=== PATIENT | male | born 1965 | race Caucasian/White ===

== ENCOUNTER 2020-02-05 08:00 | Inpatient (IN) | payer BC ==
[~2020-02-05] VITALS: Ht 182 cm; Wt 91.2 kg
--- NOTE | 2020-03-02 09:48 | HISTORY AND PHYSICAL ---
DATE OF SERVICE: ADMISSION HISTORY AND PHYSICAL This will be for inpatient admission on 03/11/2020, for right total knee arthroplasty. The patient will require a regular inpatient admission for right total knee arthroplasty due to pain management, need for physical therapy and gait abnormalities. HISTORY OF PRESENT ILLNESS: The patient is a 55-year-old gentleman with progressively worsening right medial knee pain. He has tried bracing. He has also undergone treatment with injections. He reports that this has been progressive in nature. Radiographs reveal complete loss of medial patellofemoral joint spaces with osteophyte formation noted. Due to progressive activity limitations and failure to improve with conservative measures, the patient elected to proceed with surgical intervention. REVIEW OF SYSTEMS: No chest pain, no shortness of breath, no dysuria. PAST MEDICAL HISTORY: Diabetes type 2, hypertension. PAST SURGICAL HISTORY: L5/S1 fusion, tonsillectomy and left shoulder rotator cuff repair. FAMILY HISTORY: Significant for ischemic heart disease. PRIMARY CARE PROVIDER: Dr. Medeiros in [place], [place]. MEDICATIONS: Metformin. ALLERGIES: No known drug allergies. SOCIAL HISTORY: The patient drinks alcohol socially, he is a former smoker. PHYSICAL EXAMINATION: GENERAL: The patient is well-developed, well-nourished, in no acute distress. HEENT: Normocephalic, atraumatic. Pupils are equal, round, reactive lateral. Oropharynx is clear. NECK: Supple, no lymphadenopathy. LUNGS: Clear to auscultation bilaterally. HEART: Regular rate and rhythm. ABDOMEN: Soft, nontender, nondistended. EXTREMITIES: The right knee demonstrates varus alignment. He has tenderness along his medial joint line, has pain medially with Yovani's. Slight effusions noted. Range of motion is 0/2/125. No varus valgus laxity. Negative anterior and posterior drawer. The patient ambulates with an antalgic gait. Range of motion 0/2/125. IMPRESSION: Severe right knee osteoarthritis, unresponsive to conservative measures. PLAN: Right total knee arthroplasty. Risks, benefits, options, ramifications and recovery have been discussed at length with the patient. He understands and wishes to proceed. Job ID: [id number] DocumentID: [id number] Dictated Date: 03/02/2020 08:34:23 Valet Parking Attendant Date: 03/02/2020 09:47:05 Dictated By: MARIA DE JESUS LATHAM MD
[2020-03-03] MEDS ORDERED: SULF1TAB35 PO (11:58)
[2020-03-03] MEDS ORDERED: METF-397 PO ×2 (11:58)
[2020-03-03] MEDS ORDERED: AMOX250T PO (11:58)
--- NOTE | 2020-03-31 10:32 | HISTORY AND PHYSICAL ---
DATE OF SERVICE: This will be for inpatient admission on 04/08/2020. This will be for inpatient admission for right total knee arthroplasty. The patient will require regular inpatient admission due to pain management, need for physical therapy and gait abnormalities. HISTORY OF PRESENT ILLNESS: The patient is a 55-year-old gentleman with progressively worsening right medial knee pain. He has tried bracing. He has undergone treatment with injections. He reports this has been progressive in nature. Radiographs reveal complete loss of medial and patellofemoral joint spaces with osteophyte formation noted throughout. Due to progressive activity limitations and failure to improve with conservative measures, the patient elected to proceed with surgical intervention. REVIEW OF SYSTEMS: No chest pain, no shortness of breath, no dysuria. PAST MEDICAL HISTORY: Type 2 diabetes, hypertension. PAST SURGICAL HISTORY: L5-S1 fusion, tonsillectomy and left rotator cuff repair. FAMILY HISTORY: Significant for ischemic heart disease. PRIMARY CARE PROVIDER: Dr. Medeiros in [place], [place]. MEDICATIONS: Metformin. ALLERGIES: No known drug allergies. SOCIAL HISTORY: The patient drinks alcohol socially. He is a former smoker. PHYSICAL EXAMINATION: GENERAL: The patient is well-developed, well-nourished, in no acute distress. HEENT: Normocephalic, atraumatic. Pupils are equal, round and reactive to light. Oropharynx is clear. NECK: Supple, with no lymphadenopathy. LUNGS: Clear to auscultation bilaterally. HEART: Regular rate and rhythm. ABDOMEN: Soft, nontender, nondistended. EXTREMITIES: The right knee demonstrates range of motion of 0/2/125. He has a slight effusion. He is tender along his medial joint line. He has pain medially with Yovnai. His knee demonstrates varus alignment. There is no varus valgus laxity. Negative anterior and posterior drawer. He ambulates with an antalgic gait. IMPRESSION: Right knee osteoarthritis, unresponsive to conservative measures. PLAN: Right total knee arthroplasty. The risks, benefits, options, ramifications of recovery were discussed at length with the patient. He understands and wishes to proceed. Job ID: [id number] DocumentID: [id number] Dictated Date: 03/31/2020 10:18:55 Dairy Products Maker Date: 03/31/2020 10:31:58 Dictated By: MARIA DE JESUS LATHAM MD
[2020-04-08] VITALS (12 sets, daily range): BP systolic 150–210; BP diastolic 80–111
[2020-04-08] MEDS ORDERED: CEFUROXIME INJECTION 1,500 MG in WATER (STERILE) FOR INJECTION 15 ML IV ONE (06:15)
[2020-04-08] MEDS: LACTATED RINGERS 1,000 ML IV PRN ×2 (06:38→08:04)
[2020-04-08] MEDS ORDERED: ONDANSETRON 4 MG/2 ML (SDV) Z0FRAN ONE (06:40)
[2020-04-08] MEDS ORDERED: BUPIVACAINE 0.25% 30 ML (SENSORCAINE) VIAL ONE (06:40)
[2020-04-08] MEDS ORDERED: LIDOCAINE PF 2% 5 ML (XYLOCAINE) VIAL ONE (06:40)
[2020-04-08] MEDS ORDERED: proPOfol 200 MG/20 ML (DIPRIVAN) VIAL IV ONE ×2 (06:40→07:56)
[2020-04-08] MEDS ORDERED: fentaNYL INJECTION 100 MCG/2 ML AMP ONE ×3 (06:40→10:05)
[2020-04-08] MEDS ORDERED: MIDAZOLAM 2 MG/2 ML (VERSED) VIAL ONE (06:40)
[2020-04-08] MEDS ORDERED: SEVOFLURANE (ULTANE) 15 ML INHAL SOLN ONE ×5 (06:40→08:59)
[2020-04-08] MEDS ORDERED: ACETAMINOPHEN 325 MG TABLET PO PRN (07:30)
--- NOTE | 2020-04-08 07:32 | Progress Note-Pre Operative ---
Pre-Operative Progress Note H&P Reviewed The H&P was reviewed, patient examined and no changes noted. Date Seen by Provider: Apr 08, 2020 Time Seen by Provider: 07:22 Date H&P Reviewed: Apr 08, 2020 Time H&P Reviewed: 07:11 Pre-Operative Diagnosis: right knee primary osteoarthritis MARIA DE JESUS LATHAM MD Apr 08, 2020 07:32
--- NOTE | 2020-04-08 07:34 | Progress Note-Post Operative ---
Post-Operative Progess Note Surgeon (s)/Family Preservation Caseworker (s) Surgeon MARIA DE JESUS LATHAM MD Family Preservation Caseworker: Steve Oh Pre-Operative Diagnosis right knee primary osteoarthritis Post-Operative Diagnosis right knee primary osteoarthritis Procedure & Operative Findings Date of Procedure 04/08/20 Procedure Performed/Findings right total knee arthroplasty Anesthesia Type GETA Estimated Blood Loss Estimated blood loss (mL): minimal Specimens/Packing Specimens Removed none Packing: none MARIA DE JESUS LATHAM MD Apr 08, 2020 07:34
--- NOTE | 2020-04-08 07:37 | D/C HH Face to Face Order ---
D/C Face to Face Orders Reconcile Patient Problems Problems Reviewed?: Yes Instructions for Patient Via Joleen Formabilio, Patient Instructions/FollowUp: three weeks Physician to follow Patient: three weeks Discharge Diet for Home: Regular Diet Patient Data-Allergies,Ht & Wt Patient Allergies: Coded Allergies: No Known Drug Allergies (Unverified , 04/08/20) Home Health Need/Face to Face Date of Face to Face: Apr 08, 2020 Clinical Findings: Instability, Muscle weakness, Pain with ambulation, Unsteady gait I have seen Pt [id number]: Yes Discharged To: Home Diagnosis/Conditions: right total knee arthroplasty Patient is Homebound due to: Alyssa fall risk due to instabilty, Muscle weakness, Pain w/ambulation Homebound Status Due to the above stated illness, injury or surgical procedure (medical condition or diagnosis) and associated clinical findings, the patient is homebound because of his/her inability to leave home except with aid of a supportive device and/or person AND leaving the home requires a considerable and taxing effort or is medically contraindicated. Pt req the following assistanc: [facility] Nursing Orders Home Health Services Order: Physical Therapy-Evaluate & Treat DC right knee hunter and apply steri strips 04/22/20 Home Health Infusion Therapy Line Start Date: Apr 08, 2020 Therapy Orders Therapy Orders: Physical Therapy, PT to assess for OT Therapy Specific Orders: Eval assistive deivces, Teach enviro modifications/safety, Gait training, Increase strength/endurance, Provider maintenance therapy, Restore ROM Certify Stmt I certify that this patient is under my care and that I, a nurse practitioner or a physician; a data analysis assistant working with me, had a face to face encounter that - meets the physician face to face encounter requirements with this patient as dated. MARIA DE JESUS LATHAM MD Apr 08, 2020 07:37
[2020-04-08] MEDS ORDERED: INTRA-ARTICULAR IU ONE ×5 (07:45)
[2020-04-08] MEDS ORDERED: HYDROmorphone 2 MG/ML VIAL (DILAUDID) ONE (08:11)
[2020-04-08] MEDS ORDERED: GLYCOPYRROLATE 0.2 MG/ML (ROBINUL) 2 ML VIAL ONE (08:32)
[2020-04-08] MEDS ORDERED: ESMOLOL 100 MG/10 ML (BREVIBLOC) VIAL ONE (08:32)
[2020-04-08] MEDS ORDERED: MEPERIDINE (DEMEROL) INJ 50 MG/ML ONE (09:18)
[2020-04-08] MEDS ORDERED: LABETALOL HCL 20 MG/4 ML VIAL ONE (09:31)
--- NOTE | 2020-04-08 09:44 | Diagnostic Imaging Report ---
INDICATION: Postop right knee arthroplasty. FINDINGS: 2 views. Total arthroplasty of the right knee. Components are all in good alignment. No evidence of bony fractures. Skin hunter present. IMPRESSION: Satisfactory appearing postop total arthroplasty right knee Dictated by: Dictated on workstation # [id number]
[2020-04-08] MEDS ORDERED: HYDROmorphone 2 MG/ML VIAL (DILAUDID) IV ONE (09:45)
[2020-04-08] MEDS ORDERED: MEPERIDINE (DEMEROL) INJ 50 MG/ML IVP ONE (09:45)
[2020-04-08] MEDS ORDERED: ONDANSETRON 4 MG/2 ML (SDV) Z0FRAN IVP PRN (09:45)
[2020-04-08] MEDS ORDERED: LABETALOL HCL 100 MG/20 ML VIAL IV ONE (09:45)
[2020-04-08] MEDS ORDERED: fentaNYL INJECTION 100 MCG/2 ML AMP IVP ONE (10:15)
--- NOTE | 2020-04-08 10:24 | NUR ---
RECEIVED FROM RECOVERY POST RIGHT KNEE REPLACEMENT, ALERT AND ORIENTED, CALL LIGHT WITHIN REACH, DRESSING DRY AND INTACT, POLAR ICE PACK ON, SDC'S APPLIED, O2 ON PER NC AT 3 LITERS, IV SITE LEFT FOREARM WITHOUT REDNESS OR SWELLING.
--- NOTE | 2020-04-08 10:25 | Progress Note ---
Standard Progress Note Progress Notes/Assess & Plan Date Seen by a Provider: Apr 08, 2020 Time Seen by a Provider: 09:30 Progress/Assessment & Plan post op check no complaints radiographs--HW well positioned without fracture RLE--2 plus DP pulse with brisk cap refill. intact sensation to light touch. Intact DF and PF of toes and ankle s/p RTKA mobilize as able MARIA DE JESUS LATHAM MD Apr 08, 2020 10:25
--- NOTE | 2020-04-08 10:42 | OPERATIVE REPORT ---
DATE OF SERVICE: 04/08/2020 PREOPERATIVE DIAGNOSIS: Right knee primary osteoarthritis. POSTOPERATIVE DIAGNOSIS: Right knee primary osteoarthritis. PROCEDURE: Right total knee arthroplasty. SURGEON: Akbar Latham MD [employer]STATE PARALEGAL: Steve Oh, who assisted throughout the procedure and closed the incision. ANESTHESIA: General endotracheal plus femoral nerve block by Genie López CRNA. TOURNIQUET TIME: 72 minutes at 300 mmHg. ESTIMATED BLOOD LOSS: Minimal. DRAINS: None. COMPLICATIONS: None. POSTOPERATIVE PLAN: Routine total knee arthroplasty protocol. The patient was transferred to the recovery room awake and in stable condition. MATERIALS: Microport cemented, size 6 femur, cemented size 6 tibia with 10 mm insert and cemented size 35 patellar button. The patient was transferred to the recovery room awake and in stable condition. STATEMENT OF MEDICAL NECESSITY: The patient is a 55-year-old gentleman with longstanding progressive right knee pain. He had undergone treatment with injections, anti-inflammatories and rest without relief. Radiographs revealed severe medial patellofemoral arthrosis. Due to functional impairment and failure to improve with conservative measures, the patient elected to proceed with surgical intervention. DESCRIPTION OF PROCEDURE: After risks and benefits of procedure were discussed and questions were answered, informed consent was signed and placed on chart, the operative site was confirmed in the preoperative holding area initialed by the surgeon. The patient was then transferred to the operating room and after adequate levels of general endotracheal anesthetic were obtained, a timeout was called, confirming the operative site. The right lower extremity was prepped and draped in the usual sterile fashion with the knee flexed and elevated, tourniquet was inflated to 300 mmHg. A standard anterior approach was utilized. Hemostasis was obtained with cautery. Medial parapatellar arthrotomy was performed leaving 1 cm cuff on the patella for later reattachment. A portion of the fat pad was resected. A subperiosteal release was performed in the proximal medial tibia being careful to stay on the bony surface. The ACL was resected. There was a flexion contracture. Therefore, the PCL was released as well. The intramedullary guide was passed into the femur. The distal cutting block was placed. Distal cut was made. Femur sized to a size 6. The 6 cutting block was placed parallel to the epicondylar axis and cuts were made from posterior to anterior. Subperiosteal release was then carefully performed on the posterior distal femur, being careful to stay on the bony surface. The intramedullary guide was passed into the tibia. The cutting block was placed. The drop nuha transected the intermalleolar axis and the cut was made. The 6-baseplate was placed and the drop nuha transected the intermalleolar axis. This was then prepared with the drill and keel punch. The femoral trial was placed and trochlear cut was made, 10 mm insert was placed. The patella was prepared by using the freehand technique and resecting 10 mm off the undersurface. Peg guide was placed and peg holes were drilled. A 35 trial was placed. Knee was taken through range of motion. Full extension was easily obtained, 120 degrees of flexion with gravity was easily obtained. There was no anterior/posterior or medial/lateral laxity in flexion or extension. The trials were removed. The joint was irrigated with pulse lavage. The periarticular block was placed in the posterior capsule, medial and lateral retinaculum extensor mechanism, subcutaneous tissues. The bone ends were irrigated and dried and the tibial baseplate was cemented into position. Excessive cement was removed, the superior surface was irrigated and dried and the polyethylene insert was placed. Distal femur was irrigated and dried and the femoral prosthesis was cemented into position. Excessive cement was removed. The knee was brought out into full extension, held in that position until the cement had cured. The undersurface of patella was irrigated and dried and the patellar button was cemented into position. Once the cement had cured, the knee was taken through range of motion. Full extension was easily obtained, 120 degrees of flexion with gravity was easily obtained. There was no anterior/posterior or medial/lateral laxity in flexion or extension. The joint was further irrigated with pulse lavage. Arthrotomy was closed with #2 Tevdek in [id number] interrupted fashion. The knee was flexed. Patella tracked well with no instability noted and no undue tension at the repair site. Subcutaneous tissues were irrigated using a total of 6 liters throughout the procedure. A 2-0 Vicryl was used for subcutaneous tissue and hunter used on the skin. A soft dressing was applied. The tourniquet was deflated. The patient was transferred to the recovery room awake and in stable condition. Job ID: [id number] DocumentID: [id number] Dictated Date: 04/08/2020 09:24:06 Intake Nurse Date: 04/08/2020 10:42:15 Dictated By: AKBAR LATHAM MD
[2020-04-08] MEDS: NS IV 1000 ML 1,000 ML IV SCH ×2 (11:02→23:21)
[2020-04-08] MEDS: morphine PCA 100 MG/100 ML BAG IV PRN (11:23)
--- NOTE | 2020-04-08 11:23 | NUR ---
MORPHINE SUPERVISOR COOK ROOM STARTED, 1MG PER ML, 3MG BOLUS GIVEN, INSTRUCTED PATIENT ON HOW TO USE SUPERVISOR COOK ROOM, VERBALIZED UNDERSTANDING
[2020-04-08] MEDS: inSUlin ASPART (NovoLOG) 1 UNIT/0.01 ML (CHARGE PER UNIT) SC SCH ×3 (11:45→20:32)
--- NOTE | 2020-04-08 13:10 | Consultation - Hospitalist ---
HPI History of Present Illness: HPI/Chief Complaint Valentin Durand is a 55-year-old male with past medical history of hypertension, diabetes, osteoarthritis, who presented for right total knee arthroplasty due to primary osteoarthritis. He underwent his surgery this morning and is doing well postoperatively. He has not eaten or drank anything yet. He has not gotten up and worked with physical therapy yet. He denies any fevers or chills. He denies any chest pain or shortness of breath. He denies any abdominal pain. He denies any nausea or vomiting. He has no other complaints or concerns. He has a history of hypertension but does not take any medications regularly for this. He also has diabetes and he takes metformin at home. Source: patient Exam Limitations: no limitations Date Seen 04/08/20 Attending Physician Akbar Abdalla MD PCP No,Local Physician Referring Physician Date of Admission Apr 08, 2020 at 06:04 Home Medications & Allergies Home Medications Reviewed patient Home Medication Reconciliation performed by pharmacy medication reconciliations formula technician and/or nursing. Patients Allergies have been reviewed. Allergies Allergies Coded Allergies No Known Drug Allergies (Unverified04/08/20) Past Kqotoxn-Htygli-Xbdsjy Hx Past Med/Social Hx: Reviewed Nursing Past Med/Soc Hx Patient Social History Smoking Status: Former Smoker Former Smoker, Quit: Mar 03, 2013 Recent Foreign Travel: No Contact w/other who traveled: No Recent Hopitalizations: Yes Seasonal Allergies Seasonal Allergies: Yes (MILD) Past Medical History Currently Using CPAP: No Currently Using BIPAP: No Sexually Transmitted Disease: No HIV/AIDS: No Musculoskeletal: Arthritis Endocrine: Diabetes, Non-Insulin dep Loss of Vision: Denies Hearing Impairment: Denies Cancer: Skin Did You Recieve Any Treatments: Yes What Type of Treatment Did You: Surgical Intervention Psychosocial: Anxiety History of Blood Disorders: No Adverse Reaction to Blood [place]: No (N/A) Review of Systems Constitutional: no symptoms reported EENTM: no symptoms reported Respiratory: no symptoms reported Cardiovascular: no symptoms reported Gastrointestinal: no symptoms reported Genitourinary: no symptoms reported Musculoskeletal: no symptoms reported Skin: no symptoms reported Psychiatric/Neurological: No Symptoms Reported Physical Exam Physical Exam Vital Signs Vital Signs - First Documented 04/08/20 07:01 Temp 36.3 Pulse 72 Resp 18 B/P (MAP) 168/90 (116) Pulse Ox 96 O2 Delivery Room Air Capillary Refill : Less Than 3 Seconds Height, Weight, BMI Height: '" Weight: lbs. oz. kg; 27.53 BMI Method: General Appearance: No Apparent Distress, WD/WN HEENT: PERRL/EOMI, Pharynx Normal Neck: Normal Inspection, Supple Respiratory: Lungs Clear, Normal Breath Sounds, No Respiratory Distress Cardiovascular: Regular Rate, Rhythm, No Edema, No Murmur Gastrointestinal: Normal Bowel Sounds, Non Tender, Soft Extremity: Normal Inspection, Non Tender, No Pedal Edema Neurologic/Psychiatric: Alert, Oriented x3, No Motor/Sensory Deficits, Normal Mood/Affect Skin: Normal Color, Warm/Dry Results Results/Procedures Labs Laboratory Tests 04/09/20 05:25 Patient resulted labs reviewed. Imaging: Reviewed Imaging Report Assessment/Plan Assessment and Plan Assess & Plan/Chief Complaint Total knee arthroplasty Osteoarthritis of right knee Ortho primary Pain regimen Bowel regimen Incentive spirometry PT/OT T2DM Sliding scale insulin HTN Hydralazine as needed DVT prophylaxis: Lovenox Diagnosis/Problems Diagnosis/Problems (1) S/P total knee arthroplasty Status: Acute Qualifiers: Laterality: right Qualified Codes: Z96.651 - Presence of right artificial knee joint (2) Osteoarthritis of right knee Status: Chronic Qualifiers: Osteoarthritis type: primary Qualified Codes: M17.11 - Unilateral primary osteoarthritis, right knee (3) T2DM (type 2 diabetes mellitus) Status: Chronic Qualifiers: Diabetes mellitus predatory animal exterminator insulin use: without assisted use (4) HTN (hypertension) Status: Chronic Qualifiers: Hypertension type: essential hypertension Qualified Codes: I10 - Essential (primary) hypertension JAH PARR MD Apr 08, 2020 13:10
--- NOTE | 2020-04-08 13:48 | Physical Therapy Evaluation ---
PT Evaluation-General Medical Diagnosis Admission Date Apr 08, 2020 at 06:04 Medical Diagnosis: right TKA Onset Date: Apr 08, 2020 Therapy Diagnosis Therapy Diagnosis: impaired mobility, strength, endurance, ROM Weight Bear Status Right Lower Extremity: Right Weight Bearing/Tolerated Referral Physician: Adriano Reason for Referral: Evaluation/Treatment Medical History Additional Medical History PAST MEDICAL HISTORY: Type 2 diabetes, hypertension. PAST SURGICAL HISTORY: L5-S1 fusion, tonsillectomy and left rotator cuff repair. Reviewed History: Yes Social History Home: Single Level Current Living Status: Spouse Entry Into Home: Stairs With Railing PT Steps Into Home: 3 Prior Prior Level of Function SCALE: Activities may be completed with or without assistive devices. 8-Hbttidrojv-silquck completes the activity by him/herself with no assistance from a helper. 5-Set-up or Clean-up Assistance-helper sets up or cleans up; patient completes activity. [place] assists only prior to or following the activity. 4-Supervision or Touching Assistance-helper provides verbal cues and/or touching/steadying and/or contact guard assistance as patient completes activity. Assistance may be provided throughout the activity or intermittently. 3-Partial/Moderate Assistance-helper does LESS THAN HALF the effort. [place] lifts, holds or supports trunk or limbs, but provides less than half the effort. 2-Substantial/Maximal Assistance-helper does MORE THAN HALF the effort. [place] lifts or holds trunk or limbs and provides more than half the effort. 4-Xcvadptia-pwuzni does ALL the effort. Patient does none of the effort to complete the activity. Or, the assistance of 2 or more helpers is required for the patient to complete the activity. If activity was not attempted, code reason: 7-Patient Refused. 9-Not Applicable-not attempted and the patient did not perform the activity before the current illness, exacerbation or injury. 10-Not Attempted due to Environmental Limitations-(lack of equipment, weather restraints, etc.). 88-Not Attempted due to Medical Conditions or Safety Concerns. Bed Mobility: 6 Transfers (B,C,W/C): 6 Gait: 6 Stairs: 6 Indoor Mobility (Ambulation): Independent Stairs: Independent PT Evaluation-Current Subjective Patient in bed pre tx, agrees to PT, has unrated pain in right knee. Pt/Family Goals to be independent at home Objective Patient Orientation: Person, Place, Situation Attachments: IV ROM/Strength ROM Lower Extremities right knee extension +3 degrees, flexion 80 degrees Sensory Hearing: Functional Sensation Right Lower Extremit: Intact Sensation Left Lower Extremity: Intact Transfers Roll Left to Right (QC): 6 Sit to Lying (QC): 6 Lying to Sitting/Side of Bed(Q: 6 Sit to Stand (QC): 4 Chair/Nsk-ql-Thron Xfer(QC): 4 CGA for sit to stand and transfers, cues for safety Gait Does the Patient Walk?: Yes Mode of Locomotion: Walk Anticipated Mode of Locomotion: Walk Walk 10 feet (QC): 4 Walk 50 ft with 2 Turns(QC): 4 Distance: 80 Gait Assistive Device: FWW Comments/Gait Description Patient ambulated 80' with a rolling walker with CGA, good step through and weight bearing, patient makes a good effort to not ambulate stiff legged Balance Sitting Static: Normal Sitting Dynamic: Normal Standing Static: Good Standing Dynamic: Good Treatment RLE TKA protocol x10 (AP, QS, HS, SAQ, SLR), CPM donned and fit to leg and set to 60/-2. Assessment/Needs Patient has impaired mobility, strength, endurance, ROM. Patient in bed post tx with nurse call, phone[facility], pain button, in room. Patient is CGA with mobility. Rehab Potential: Fair PT Home Health Care Social Worker Goals Detention Goals PT Home Health Care Social Worker Goals Time Frame: Apr 15, 2020 Roll Left & Right (QC): 6 Sit to Lying (QC): 6 Lying-Sitting on Side/Bed(QC): 6 Sit to Stand (QC): 6 Chair/Iao-qt-Ojioe Xfer(QC): 6 Walk 10 feet (QC): 6 Walk 50ft with 2 Turns (QC): 6 Walk 150 ft (QC): 6 1 Step (curb) (QC): 4 4 Steps (QC): 4 PT Plan Problem List Problem List: Activity Tolerance, Functional Strength, Safety, Balance, Gait, Transfer, ROM Treatment/Plan Treatment Plan: Continue Plan of Care Treatment Plan: Education, Functional Activity Álvaro, Functional Strength, Gait, Safety, Therapeutic Exercise, Transfers Treatment Duration: Apr 15, 2020 Frequency: 11 times per week Estimated Hrs Per Day: .25 hour per day Patient and/or Family Agrees t: Yes Safety Risks/Education Patient Education: Gait Training, Transfer Techniques, Correct Positioning, Safety Issues Teaching Recipient: Patient Teaching Methods: Demonstration, Discussion Response to Teaching: Reinforcement Needed Discharge Recommendations Plan Patient will perform bed mobility and transfer training, balance and endurance training, functional strengthening, stair training, gait training, and education, to improve functional mobility and independence at home. Therapy Discharge Recommendati: Home & Family Time/GCodes Time In: 1305 Time Out: 1336 Total Billed Treatment Time: 31 Total Billed Treatment 1 visit EVL 15' GT 16' ANAIS RAMIREZ PT Apr 08, 2020 13:48
[2020-04-08] MEDS: SENNA W/DOCUSATE (SENOKOT S) TABLET PO SCH ×3 (14:33→20:13)
--- NOTE | 2020-04-08 15:00 | NUR ---
ON CPM MACHINE, ADIS WELL, DRESSING DRY AND INTACT, INSTRUCTED ON IS, INSTRUCTED TO USE DO 10 BREATHES EVERY 2 HOURS.
[2020-04-08] MEDS: CEFUROXIME INJECTION 750 MG in WATER (STERILE) FOR INJECTION 10 ML IV SCH ×2 (16:06→23:49)
[2020-04-08] MEDS: ONDANSETRON 4 MG/2 ML (SDV) Z0FRAN IVP PRN (20:48)
[2020-04-09 00:27] VITALS: BP 144/76
[2020-04-09 04:16] VITALS: BP 134/67
[2020-04-09] MEDS: inSUlin ASPART (NovoLOG) 1 UNIT/0.01 ML (CHARGE PER UNIT) SC SCH ×4 (05:32→21:15)
[2020-04-09 06:03] LABS: HEMOGLOBIN 13.1 g/dL (13.3-17.7)
[2020-04-09] MEDS: MULTIVIT W/MINERALS TAB (THERAGRAN M) PO SCH (06:22)
[2020-04-09] MEDS: ENOXAPARIN 30 MG/0.3 ML (LOVENOX) SYR SC SCH ×2 (06:22→19:57)
--- NOTE | 2020-04-09 07:17 | Anesthesia-General Post-Op ---
General Patient Condition Mental Status/LOC: Same as Preop Cardiovascular: Satisfactory Nausea/Vomiting: Absent Respiratory: Satisfactory Pain: Controlled Complications: Absent Post Op Complications Complications None Follow Up Care/Instructions Patient Instructions None needed. Anesthesia/Patient Condition Patient Condition Patient is doing well, no complaints, stable vital signs, no apparent adverse anesthesia problems. No complications reported per nursing. ANN AGUIRRE CRNA Apr 09, 2020 07:17
[2020-04-09 08:01] VITALS: BP 148/77
--- NOTE | 2020-04-09 08:09 | Progress Note ---
Standard Progress Note Progress Notes/Assess & Plan Date Seen by a Provider: Apr 09, 2020 Time Seen by a Provider: 08:08 Progress/Assessment & Plan post op check no complaints radiographs--HW well positioned without fracture RLE--2 plus DP pulse with brisk cap refill. intact sensation to light touch. Intact DF and PF of toes and ankle s/p RTKA mobilize as able Final Diagnosis no complaints Vital Signs Date Time Temp Pulse Resp B/P (MAP) Pulse Ox O2 Delivery O2 Flow Rate FiO2 04/09/20 08:01 36.9 75 20 148/77 (100) 97 Room Air 04/09/20 04:16 36.6 65 20 134/67 (89) 92 Room Air 04/09/20 00:27 36.5 64 20 144/76 (98) 93 Room Air 04/08/20 20:39 Nasal Cannula 3.00 04/08/20 20:10 36.9 76 20 156/85 (108) 96 Room Air 04/08/20 19:30 20 04/08/20 16:27 36.6 65 20 150/80 (103) 97 Room Air 04/08/20 12:00 36.6 54 18 155/82 (106) 96 Room Air 04/08/20 11:00 96 Nasal Cannula 3.00 04/08/20 10:34 35.6 72 18 170/86 (114) 98 04/08/20 10:24 36.2 20 173/103 (126) 95 Nasal Cannula 3 04/08/20 10:24 Nasal Cannula 3 04/08/20 10:15 Room Air 04/08/20 10:10 20 166/109 (128) 96 Nasal Cannula 3 04/08/20 10:00 20 186/111 (136) 100 Room Air 04/08/20 10:00 Room Air 04/08/20 09:50 20 186/105 (132) 100 OxyMask 3 04/08/20 09:45 OxyMask 3 04/08/20 09:40 20 196/110 (138) 100 OxyMask 6 04/08/20 09:30 OxyMask 10 04/08/20 09:30 20 206/108 (140) 100 OxyMask 8 04/08/20 09:19 36.2 16 210/111 (144) 100 OxyMask 10 04/08/20 09:19 OxyMask 10 I & O 04/09/20 07:00 Intake Total 3835 ml Output Total 100 ml Balance 3735 ml Laboratory Tests Test 04/08/20 15:34 04/08/20 20:29 04/09/20 05:23 04/09/20 05:25 Range/Units Glucometer 121 H 140 H 151 H 70-110 MG/DL Hemoglobin 13.1 L 13.3-17.7 g/dL Hematocrit 38 L 40-54 % R knee dressing intact. NVI distally. able to perform SLR. no claf tenderness s/p RTKA doing well PT/OT MARIA DE JESUS LATHAM MD Apr 09, 2020 08:09
[2020-04-09] MEDS: ONDANSETRON 4 MG/2 ML (SDV) Z0FRAN IVP PRN ×2 (08:27→21:21)
[2020-04-09] MEDS: diphenhydrAMINE 50 MG/ML INJ (BENADRYL) IVP PRN (08:28)
[2020-04-09] MEDS: SENNA W/DOCUSATE (SENOKOT S) TABLET PO SCH ×2 (08:28→19:57)
[2020-04-09] MEDS: NS IV 1000 ML 1,000 ML IV SCH ×2 (08:29→12:03)
[2020-04-09] MEDS: ASPIRIN E.C. 81 MG (ECOTRIN) TAB PO SCH (08:29)
[2020-04-09] MEDS: oxyCODONE/APAP 5/325MG (PERCOCET 5) TABLET PO PRN ×5 (08:29→21:20)
--- NOTE | 2020-04-09 09:21 | Physical Therapy Daily Note ---
PT Daily Note-Current Subjective Patient rates right knee pain 6/10 with ESCAPE WHEEL TOOTH CUTTER and pain pill. Pain Numeric Pain Scale: 6 Location: Right Location Body Site: Knee Pain Description: Acute Mental Status Patient Orientation: Normal For Age Attachments: IV Transfers SCALE: Activities may be completed with or without assistive devices. 6-Fiqvzuehpt-zgyktzx completes the activity by him/herself with no assistance from a helper. 5-Set-up or Clean-up Assistance-helper sets up or cleans up; patient completes activity. [place] assists only prior to or following the activity. 4-Supervision or Touching Assistance-helper provides verbal cues and/or touc carla/steadying and/or contact guard assistance as patient completes activity. Assistance may be provided throughout the activity or intermittently. 3-Partial/Moderate Assistance-helper does LESS THAN HALF the effort. [place] lifts, holds or supports trunk or limbs, but provides less than half the effort. 2-Substantial/Maximal Assistance-helper does MORE THAN HALF the effort. [place] lifts or holds trunk or limbs and provides more than half the effort. 2-Jafpfkfdt-jpotpq does ALL the effort. Patient does none of the effort to complete the activity. Or, the assistance of 2 or more helpers is required for the patient to complete the activity. If activity was not attempted, code reason: 7-Patient Refused. 9-Not Applicable-not attempted and the patient did not perform the activity before the current illness, exacerbation or injury. 10-Not Attempted due to Environmental Limitations-(lack of equipment, weather restraints, etc.). 88-Not Attempted due to Medical Conditions or Safety Concerns. Lying to Sitting/Side of Bed(Q: 5 Sit to Stand (QC): 4 Chair/Evy-nq-Cluhy Xfer(QC): 4 Weight Bearing Right Lower Extremity: Right Weight Bearing/Tolerated Gait Training Does the Patient Walk?: Yes Distance: 225' Walk 10 feet (QC): 4 Walk 50 ft with 2 Turns(QC): 4 Walk 150 ft (QC): 4 Gait Assistive Device: FWW steady, reciprocal pattern Exercises Supine Ex: Ankle pumps, Quad Set, Heel Slides, Straight leg raise Supine Reps: 12 Seated Therapy Exercises: Ankle pumps, Long arc quads Seated Reps: 12 Assessment Patient up in recliner with needs met. Patient tolerated treatment well. PT [facility] Goals Pesticide Control Inspector Goals PT Pesticide Control Inspector Goals Time Frame: Apr 15, 2020 Roll Left & Right (QC): 6 Sit to Lying (QC): 6 Lying-Sitting on Side/Bed(QC): 6 Sit to Stand (QC): 6 Chair/Ybf-km-Qltaq Xfer(QC): 6 Walk 10 feet (QC): 6 Walk 50ft with 2 Turns (QC): 6 Walk 150 ft (QC): 6 1 Step (curb) (QC): 4 4 Steps (QC): 4 PT Plan Treatment/Plan Treatment Plan: Continue Plan of Care Treatment Plan: Education, Functional Activity Álvaro, Functional Strength, Gait, Safety, Therapeutic Exercise, Transfers Treatment Duration: Apr 15, 2020 Frequency: 11 times per week Estimated Hrs Per Day: .25 hour per day Patient and/or Family Agrees t: Yes Time/GCodes Time In: 810 Time Out: 835 Total Billed Treatment Time: 25 Total Billed Treatment 1 visit EX 15 min GT 10 min SELENE FIGUEROA PT Apr 09, 2020 09:21
--- NOTE | 2020-04-09 10:14 | NUR ---
IRF Evaluation Determination: Denied Chart review complete and it appears patient is ambulating (225ft, FWW), transferring, and completing bed mobility with supervision; therefore, patient does not require an intensive multidisciplinary approach to rehabilitation. Thank you for this referral.
--- NOTE | 2020-04-09 11:16 | Occupational Therapy Eval ---
OT Evaluation-General/PLF Medical Diagnosis Admission Date Apr 08, 2020 at 06:04 Medical Diagnosis: right TKA Onset Date: Apr 08, 2020 Therapy Diagnosis Therapy Diagnosis: decreased ADL status Precautions Precautions/Isolations: Standard Precautions Referral Physician: Adriano Gilliland Reason: Evaluation/Treatment Medical History Pertinent Medical History: DM, HTN Additional Medical History L5/S1 fusion, L shoulder rotator cuff repair. Current History s/p R TKA 04/08/2020 Social History Home: Single Level Current Living Status: Spouse Entry Into Home: Stairs With Railing Steps Into Home: 3 ADL-Prior Level of Function SCALE: Activities may be completed with or without assistive devices. 9-Vqzfxnvawu-nulchql completes the activity by him/herself with no assistance from a helper. 5-Set-up or Clean-up Assistance-helper sets up or cleans up; patient completes activity. [place] assists only prior to or following the activity. 4-Supervision or Touching Assistance-helper provides verbal cues and/or touching/steadying and/or contact guard assistance as patient completes activity. Assistance may be provided throughout the activity or intermittently. 3-Partial/Moderate Assistance-helper does LESS THAN HALF the effort. [place] li fts, holds or supports trunk or limbs, but provides less than half the effort. 2-Substantial/Maximal Assistance-helper does MORE THAN HALF the effort. [place] lifts or holds trunk or limbs and provides more than half the effort. 4-Afoobidfs-azjfni does ALL the effort. Patient does none of the effort to complete the activity. Or, the assistance of 2 or more helpers is required for the patient to complete the activity. If activity was not attempted, code reason: 7-Patient Refused. 9-Not Applicable-not attempted and the patient did not perform the activity before the current illness, exacerbation or injury. 10-Not Attempted due to Environmental Limitations-(lack of equipment, weather restraints, etc.). 88-Not Attempted due to Medical Conditions or Safety Concerns. ADL PLOF Comments Pt reports being independent with all ADLS and functional mobility at PLOF. Self Care: Independent Functional Cognition: Independent DME/Equipment: Bath Chair, Shower DME/Equipment Comments owns cane and walker. OT Current Status Subjective Pt laying in bed, agreeable to OT tx. CPM on pre/post tx. Reports pain, does not provide rating, nurse notified of pt's request for pain med. Mental Status/Objective Patient Orientation: Person, Place, Time, Situation Attachments: Polar Pack, Other-See Comments (CPM) Current Glasses/Contacts: Yes Hand Dominance: Right Upper Extremity ROM WFL, BUE shoulder flexion to approx 150 degrees. Upper Extremity Coordination WFL Upper Extremity Sensation WFL, pt denies tingling/numbness Upper Extremity Strength grossly 4/5 ADL-Treatment Eating (QC): 6 (pt reports no difficulties eating.) Toileting Hygiene (QC): 6 (IND standing at toilet.) Other Treatments Pt laying in bed, agreeable to OT evaluation and tx. In order to increase BUE strength and functional endurance, pt completed x10 reps of the following BUE exercises: shoulder flexion, elbow flexion, front punch, external rotation. Pt states need to use the restroom. Transfers supine to sit EOB independently, then uses FWW to ambulate to restroom, OT managed IV pole. Pt stood at toilet to urinate, then returned to bed. OT placed polar pack and CPM. Pt states he has no concerns with his ability to complete ADLs at this time, OT educated pt on OT POC, he agreed. Post tx, pt laying in bed, call light in reach and all needs met. Education OT Patient Education: Correct positioning, Modified ADL techniques, Progress toward Goal/Update tx plan, Purpose of tx/functional activities Teaching Recipient: Patient Teaching Methods: Discussion Response to Teaching: Verbalize Understanding OT Half-Way Goals Party Plan Sales Director Goals Time Frame: Apr 17, 2020 Eating (QC): 6 Oral Hygiene (QC): 6 Toileting Hygiene (QC): 6 Shower/Bathe Self (QC): 6 Upper Body Dressing (QC): 6 Lower Body Dressing (QC): 6 On/Off Footwear (QC): 6 Additional Goals: 1-Demonstrate ADL Tasks, 2-Verbalize Understanding, 3- ImproveStrength/Álvaro 1=Demonstrate adherence to instructed precautions during ADL tasks. 2=Patient will verbalize/demonstrate understanding of assistive devices/modifications for ADL. 3=Patient will improve strength/tolerance for activity to enable patient to perform ADL's. OT Education/Plan Problem List/Assessment Assessment: Decreased Activ Tolerance, Impaired I ADL's, Impaired Self-Care Skills Discharge Recommendations Plan/Recommendations: Continue POC Treatment Plan/Plan of Care Patient would benefit from OT for education, treatment and training to promote independence in ADL's, mobility, safety and/or upper extremity function for ADL's. Plan of Care: ADL Retraining, Functional Mobility, UE Funct Exercise/Act Treatment Duration: Apr 17, 2020 Frequency: 5 times per week Estimated Hrs Per Day: .25 hour per day Rehab Potential: Fair Time/GCodes Start Time: 10:47 Stop Time: 11:03 Total Time Billed (hr/min): 16 Billed Treatment Time 1, TROY BEARD OT Apr 09, 2020 11:16
[2020-04-09] MEDS ORDERED: TRIM/SULFAMETH 160/800 (SEPTRA DS) TAB PO NR (11:45)
[2020-04-09] MEDS ORDERED: hydrALAZINE (APESOLINE) 20 MG/ML VIAL IV PRN (11:45)
[2020-04-09 12:00] VITALS: BP 161/89
--- NOTE | 2020-04-09 13:21 | NUR ---
CM/SS visited with patient for social service consult. Plan: The patient will discharge tomorrow 2/5 with home health. Home Health: [facility] ([place], [place]). CM/SS left a voicemail with Marybeth ([phone]) to make a referral. Awaiting a call back. CM/SS researched area home health agencies that service the patient's demographics. The patient's choices are limited. CM/SS informed him there is also an outpatient physical therapy option in [place] if a home health isn't available. [facility] declined service area. The patient reports he recalls his brother getting home health. The patient contacted for agency name. Equipment: The patient has a front wheeled walker. Home: The patient lives at home with his . He reports she will assist with his needs. CM/SS will continue to follow.
[2020-04-09] MEDS: morphine PCA 100 MG/100 ML BAG IV PRN (13:48)
--- NOTE | 2020-04-09 13:58 | Physical Therapy Daily Note ---
PT Daily Note-Current Subjective Patient sitting in recliner and agrees to PT. Pain Numeric Pain Scale: 7 Location: Right Location Body Site: Knee Pain Description: Acute Mental Status Patient Orientation: Normal For Age Attachments: IV Transfers SCALE: Activities may be completed with or without assistive devices. 8-Rgieeklqbj-phyxtdt completes the activity by him/herself with no assistance from a helper. 5-Set-up or Clean-up Assistance-helper sets up or cleans up; patient completes activity. [place] assists only prior to or following the activity. 4-Supervision or Touching Assistance-helper provides verbal cues and/or touching/steadying and/or contact guard assistance as patient completes activity. Assistance may be provided throughout the activity or intermittently. 3-Partial/Moderate Assistance-helper does LESS THAN HALF the effort. [place] lifts, holds or supports trunk or limbs, but provides less than half the effort. 2-Substantial/Maximal Assistance-helper does MORE THAN HALF the effort. [place] lifts or holds trunk or limbs and provides more than half the effort. 6-Wiawxaynl-mgnyeg does ALL the effort. Patient does none of the effort to complete the activity. Or, the assistance of 2 or more helpers is required for the patient to complete the activity. If activity was not attempted, code reason: 7-Patient Refused. 9-Not Applicable-not attempted and the patient did not perform the activity before the current illness, exacerbation or injury. 10-Not Attempted due to Environmental Limitations-(lack of equipment, weather restraints, etc.). 88-Not Attempted due to Medical Conditions or Safety Concerns. Sit to Stand (QC): 5 Weight Bearing Right Lower Extremity: Right Weight Bearing/Tolerated Gait Training Does the Patient Walk?: Yes Distance: 275' Walk 10 feet (QC): 5 Walk 50 ft with 2 Turns(QC): 5 Walk 150 ft (QC): 5 Gait Assistive Device: FWW reciprocal pattern Exercises Seated Therapy Exercises: Ankle pumps, Long arc quads Seated Reps: 15 Assessment Current Status: Excellent Progress Plan dismissal in a.m. to home with spouse and home health. PT [facility] Goals Mill Tender Goals PT [facility] Goals Time Frame: Apr 15, 2020 Roll Left & Right (QC): 6 Sit to Lying (QC): 6 Lying-Sitting on Side/Bed(QC): 6 Sit to Stand (QC): 6 Chair/Vhb-yd-Xkdxv Xfer(QC): 6 Walk 10 feet (QC): 6 Walk 50ft with 2 Turns (QC): 6 Walk 150 ft (QC): 6 1 Step (curb) (QC): 4 4 Steps (QC): 4 PT Plan Treatment/Plan Treatment Plan: Continue Plan of Care Treatment Plan: Education, Functional Activity Álvaro, Functional Strength, Gait, Safety, Therapeutic Exercise, Transfers Treatment Duration: Apr 15, 2020 Frequency: 11 times per week Estimated Hrs Per Day: .25 hour per day Patient and/or Family Agrees t: Yes Time/GCodes Time In: 1300 Time Out: 1316 Total Billed Treatment Time: 16 Total Billed Treatment 1 visit FA 16 min SELENE FIGUEROA PT Apr 09, 2020 13:58
--- NOTE | 2020-04-09 14:04 | NUR ---
13 ML MS WASTED WITH SAM ZAMUDIO WITNESS TO WASTE.
[2020-04-09 16:00] VITALS: BP 184/88
[2020-04-09] MEDS: metFORMIN 500 MG (GLUCOPHAGE) TAB PO SCH (16:57)
[2020-04-09 20:00] VITALS: BP 181/84
--- NOTE | 2020-04-09 21:11 | DISCHARGE SUMMARY ---
DATE OF SERVICE: DIAGNOSES: 1. Right knee primary osteoarthritis. 2. Type 2 diabetes. 3. Hypertension. PROCEDURE: Right total knee arthroplasty. SUMMARY: The patient is a 55-year-old gentleman who underwent a right total knee arthroplasty on the day of admission. Postoperatively, he did very well. At time of discharge, his wound was clean and dry and no calf tenderness. Negative Homans sign. He was tolerating his diet well and tolerating pain with oral pain medication. CONDITION AT DISCHARGE: Good. FOLLOWUP: Followup is in 3 weeks. DISCHARGE MEDICATIONS: Home medications, aspirin, one aspirin per day for 30 days and Percocet as needed for pain. Home physical therapy will be arranged. ACTIVITIES: The patient can weightbear as tolerated with assistive devices as needed. DIET: . Job ID: [id number] DocumentID: [id number] Dictated Date: 04/09/2020 12:42:03 Neonatal Nurse Practitioner Date: 04/09/2020 21:10:11 Dictated By: MARIA DE JESUS LATHAM MD
[2020-04-10] MEDS: NS IV 1000 ML 1,000 ML IV SCH (00:30)
[2020-04-10 00:48] VITALS: BP 131/58
[2020-04-10] MEDS: oxyCODONE/APAP 5/325MG (PERCOCET 5) TABLET PO PRN ×3 (01:27→08:33)
[2020-04-10 04:00] VITALS: BP 162/82
[2020-04-10] MEDS: diphenhydrAMINE 50 MG/ML INJ (BENADRYL) IVP PRN (04:51)
[2020-04-10 05:10] LABS: HEMOGLOBIN 12.6 g/dL (13.3-17.7)
[2020-04-10] MEDS: inSUlin ASPART (NovoLOG) 1 UNIT/0.01 ML (CHARGE PER UNIT) SC SCH (06:03)
[2020-04-10] MEDS: metFORMIN 500 MG (GLUCOPHAGE) TAB PO SCH (06:28)
[2020-04-10] MEDS: MULTIVIT W/MINERALS TAB (THERAGRAN M) PO SCH (06:28)
[2020-04-10] MEDS: ENOXAPARIN 30 MG/0.3 ML (LOVENOX) SYR SC SCH (06:28)
--- NOTE | 2020-04-10 07:07 | Progress Note ---
Standard Progress Note Progress Notes/Assess & Plan Date Seen by a Provider: Apr 10, 2020 Time Seen by a Provider: 07:06 Progress/Assessment & Plan post op check no complaints radiographs--HW well positioned without fracture RLE--2 plus DP pulse with brisk cap refill. intact sensation to light touch. Intact DF and PF of toes and ankle s/p RTKA mobilize as able Final Diagnosis no complaints Vital Signs Date Time Temp Pulse Resp B/P (MAP) Pulse Ox O2 Delivery O2 Flow Rate FiO2 04/10/20 04:00 36.5 85 20 162/82 (108) 96 Room Air 04/10/20 00:48 36.4 87 20 131/58 (82) 94 Room Air 04/09/20 20:15 Room Air 04/09/20 20:00 37.3 79 18 181/84 (116) 96 04/09/20 16:00 36.2 71 18 184/88 (120) 97 Room Air 04/09/20 12:00 36.5 86 20 161/89 (113) 95 Room Air 04/09/20 09:00 Room Air 04/09/20 08:01 36.9 75 20 148/77 (100) 97 Room Air I & O 04/10/20 07:00 Intake Total 5530 ml Output Total 250 ml Balance 5280 ml Laboratory Tests Test 04/09/20 11:16 04/09/20 11:43 04/09/20 16:00 04/09/20 20:09 Range/Units Glucometer 198 H 173 H 181 H 162 H 70-110 MG/DL Test 04/10/20 04:50 04/10/20 06:02 Range/Units Hemoglobin 12.6 L 13.3-17.7 g/dL Hematocrit 35 L 40-54 % Creatinine 0.78 0.60-1.30 MG/DL Glucometer 167 H 70-110 MG/DL RLE--incision clean and dry. No calf tenderness. Neg Gerhard's s/p RTKA doing well DC home after PT today MARIA DE JESUS LATHAM MD Apr 10, 2020 07:07
[2020-04-10 08:00] VITALS: BP 172/92
[2020-04-10] MEDS: SENNA W/DOCUSATE (SENOKOT S) TABLET PO SCH (08:32)
[2020-04-10] MEDS: ASPIRIN E.C. 81 MG (ECOTRIN) TAB PO SCH (08:32)
[2020-04-10] MEDS ORDERED: TRIM/SULFAMETH 160/800 (SEPTRA DS) TAB PO SCH (09:00)
--- NOTE | 2020-04-10 09:40 | Physical Therapy Daily Note ---
PT Daily Note-Current Subjective Patient reports he has been up since 1 a.m. and is very fatigued. Pain Numeric Pain Scale: 8 Location: Right Location Body Site: Knee Pain Description: Acute Mental Status Patient Orientation: Normal For Age Transfers SCALE: Activities may be completed with or without assistive devices. 2-Tvzuxvbfvw-azqlmnd completes the activity by him/herself with no assistance from a helper. 5-Set-up or Clean-up Assistance-helper sets up or cleans up; patient completes activity. [place] assists only prior to or following the activity. 4-Supervision or Touching Assistance-helper provides verbal cues and/or touching/steadying and/or contact guard assistance as patient completes activity. Assistance may be provided throughout the activity or intermittently. 3-Partial/Moderate Assistance-helper does LESS THAN HALF the effort. [place] lifts, holds or supports trunk or limbs, but provides less than half the effort. 2-Substantial/Maximal Assistance-helper does MORE THAN HALF the effort. [place] lifts or holds trunk or limbs and provides more than half the effort. 6-Sdshilvod-cyrlqh does ALL the effort. Patient does none of the effort to complete the activity. Or, the assistance of 2 or more helpers is required for the patient to complete the activity. If activity was not attempted, code reason: 7-Patient Refused. 9-Not Applicable-not attempted and the patient did not perform the activity b efore the current illness, exacerbation or injury. 10-Not Attempted due to Environmental Limitations-(lack of equipment, weather restraints, etc.). 88-Not Attempted due to Medical Conditions or Safety Concerns. Lying to Sitting/Side of Bed(Q: 6 Sit to Stand (QC): 6 Weight Bearing Right Lower Extremity: Right Weight Bearing/Tolerated Gait Training Does the Patient Walk?: Yes Distance: 275' Walk 10 feet (QC): 6 Walk 50 ft with 2 Turns(QC): 6 Walk 150 ft (QC): 6 Gait Assistive Device: FWW antalgic, reciprocal pattern Stair Training Stair Training: Handrails/: 2 handrails #of Steps: 4 1 Step (curb) (QC): 6 4 Steps (QC): 6 12 Steps (QC): 88 Exercises Supine Ex: Ankle pumps, Quad Set, Heel Slides, Straight leg raise Supine Reps: 12 Seated Therapy Exercises: Long arc quads Seated Reps: 12 Assessment Patient dismissing to home with spouse and home health. Patient has attained all functional goals. Patient progressing per protocol. PT Physician Coding Specialist Goals Penitentiary Goals PT [facility]itentiary Goals Time Frame: Apr 15, 2020 Roll Left & Right (QC): 6 Sit to Lying (QC): 6 Lying-Sitting on Side/Bed(QC): 6 Sit to Stand (QC): 6 Chair/Ize-is-Nobrn Xfer(QC): 6 Walk 10 feet (QC): 6 Walk 50ft with 2 Turns (QC): 6 Walk 150 ft (QC): 6 1 Step (curb) (QC): 4 4 Steps (QC): 4 PT Plan Treatment/Plan Treatment Plan: Discontinue PT, goals met Treatment Plan: Education, Functional Activity Álvaro, Functional Strength, Gait, Safety, Therapeutic Exercise, Transfers Treatment Duration: Apr 15, 2020 Frequency: 11 times per week Estimated Hrs Per Day: .25 hour per day Patient and/or Family Agrees t: Yes Time/GCodes Time In: 806 Time Out: 830 Total Billed Treatment Time: 24 Total Billed Treatment 1 visit EX 10 min FA 14 min SELENE FIGUEROA PT Apr 10, 2020 09:40
--- NOTE | 2020-04-10 09:53 | NUR ---
CM/SS finalized discharge. Plan: The patient will discharge today 2/ to home with home health. Home Health: The patient is set up with [facility] ([phone]). Marybeth contacted this sw and verified acceptance to services. CM/SS notified the primary care nurse. The patient's is present in the room. The patient is dressed and ready for discharge. They denied further questions or concerns at this time. No further needs.
--- NOTE | 2020-04-10 10:00 | NUR ---
Patient discharged and Morphine RECRUITING ASSISTANT discontinued. It was stopped at 0810. 15 ml Morphine wasted and witnessed by Daria Mitchell RN.
--- NOTE | 2020-04-10 10:37 | NUR ---
JUANITALAURA BAINS demonstrates understanding of discharge instructions and accurately returns instructions upon questioning. Copy of Post-Discharge Instructions given to HIM. LAURA LUNDY is able to manage continuing needs after discharge. Patients belongings returned. Patient discharged from [facility] at 0933 . NIKKIELAURA Franco left floor via wheelchair, accompanied by and aid.
--- NOTE | 2020-04-10 10:53 | Occ Therapy Progress Note ---
Therapy Progress Note Pt seen in room with at 0927. Pt questions if OT is taking him downstairs. Pt introduced to OT/ purpose. Pt is questioned on home s/u and ADL abilities. Pt states will assist with LB dressing/ socks if needed but has all AD needed at home. Pt denies needs. 1, visit. SERGIO ABDULLAHI OTR Apr 10, 2020 10:53
== END 2020-04-10 09:33 | disposition home health service (06) | DRG 470 ==
LOC: 4TH 04-08 06:04 → SURG 04-08 06:05 → 4TH 04-08 10:21
PROVIDERS: ADMIT Orthopaedic Surgery; ATTEND Orthopaedic Surgery
PROC: 0SRC0J9 Replacement of Right Knee Joint with Synthetic Substitute, Cemented, Open Approach (ICD-10-PCS; principal; 2020-04-08 07:33)
DX: M17.11 Unilateral primary osteoarthritis, right knee (principal); E11.9 Type 2 diabetes mellitus without complications; F41.9 Anxiety disorder, unspecified; I10 Essential (primary) hypertension; Z98.1 Arthrodesis status; Z87.891 Personal history of nicotine dependence
CPT/HCPCS: 36415; 73560; 82565; 82962; 85014; 85018; 86850; 86900; 86901

== ENCOUNTER 2020-03-09 05:32 | Outpatient (RCR) | payer BC ==
[2020-03-03 12:01] VITALS: BP 126/84
[2020-03-03 12:37] LABS: BASOPHILS % (AUTO) 0 % (0-10); BILIRUBIN,URINE NEGATIVE (NEGATIVE); CLARITY,URINE CLEAR; COLOR,URINE YELLOW; EOSINOPHILS # (AUTO) 0.1 10^3/uL (0.0-0.3); EOSINOPHILS % (AUTO) 3 % (0-10); GLUCOSE, URINE (UA) NEGATIVE (NEGATIVE); HEMATOCRIT 44 % (40-54); HEMOGLOBIN 15.5 g/dL (13.3-17.7); KETONES,URINE NEGATIVE (NEGATIVE); LEUKOCYTE ESTERASE ,URINE NEGATIVE (NEGATIVE); LYMPHOCYTES # (AUTO) 1.3 10^3/uL (1.0-4.0); LYMPHOCYTES % (AUTO) 28 % (12-44); MEAN CORPUSCULAR HEMOGLOBIN 33 pg (25-34); MEAN CORPUSCULAR HGB CONC 35 g/dL (32-36); MEAN CORPUSCULAR VOLUME 92 fL (80-99); MEAN PLATELET VOLUME 9.9 fL (9.0-12.2); MONOCYTES # (AUTO) 0.7 10^3/uL (0.0-1.0); MONOCYTES % (AUTO) 14 % (0-12); NEUTROPHILS # (AUTO) 2.6 10^3/uL (1.8-7.8); NEUTROPHILS % (AUTO) 55 % (42-75); NITRITE,URINE NEGATIVE (NEGATIVE); PLATELET COUNT 168 10^3/uL (130-400); PROTEIN,URINE NEGATIVE (NEGATIVE); WHITE BLOOD COUNT 4.8 10^3/uL (4.3-11.0)
[2020-03-03 12:53] LABS: BACTERIA,URINE NEGATIVE /HPF; SQUAMOUS EPITHELIAL CELL,UR RARE /HPF; WBC,URINE RARE /HPF
[2020-03-03 12:58] LABS: ALANINE AMINOTRANSFERASE 26 U/L (0-55); ALBUMIN 4.3 GM/DL (3.2-4.5); ALKALINE PHOSPHATASE 90 U/L (40-136); BILIRUBIN,TOTAL 0.5 MG/DL (0.1-1.0); BUN/CREATININE RATIO 14; CALCIUM 9.1 MG/DL (8.5-10.1); CARBON DIOXIDE 23 MMOL/L (21-32); CHLORIDE 103 MMOL/L (98-107); CREATININE SERUM 0.96 MG/DL (0.60-1.30); GFR ESTIMATED > 60; GLUCOSE 205 MG/DL (70-105); POTASSIUM 3.6 MMOL/L (3.6-5.0); SODIUM 133 MMOL/L (135-145); TOTAL PROTEIN 7.1 GM/DL (6.4-8.2)
[2020-03-03 12:59] LABS: ERYTHROCYTE SEDIMENTATION RATE 4 MM/HR (0-30)
--- NOTE | 2020-03-03 13:36 | Diagnostic Imaging Report ---
INDICATION: Preoperative evaluation for knee replacement. COMPARISON: None. FINDINGS: Frontal and lateral views of the chest demonstrate normal heart size and pulmonary vascularity. The lungs are clear. There are no signs of infiltrate, pleural effusions or pneumothoraces. The visualized osseous structures show no acute abnormalities. Note is made of calcified aortic atherosclerosis. IMPRESSION: 1. No acute process. No signs of infiltrates, effusions or pneumothoraces. Dictated by: Dictated on workstation # [id number]
[~2020-03-09] VITALS: Ht 182 cm; Wt 91.0 kg
[~2020-03-09 05:32] MED LIST: AMOX250T PO; METF-397 PO; SULF1TAB35 PO
== END 2020-03-09 10:17 | disposition home or self-care (01) ==
LOC: PREOP 05:32
PROVIDERS: ATTEND Orthopaedic Surgery
DX: Z01.818 Encounter for other preprocedural examination (principal); M17.11 Unilateral primary osteoarthritis, right knee; U07.1 COVID-19
CPT/HCPCS: 36415; 71046; 80053; 81000; 85025; 85610; 85652; 86850; 86900; 86901; 87081; 87635; 93005

== ENCOUNTER 2020-03-26 11:12 | Outpatient (RCR) | payer BC ==
[~2020-03-26] VITALS: Ht 182.9 cm; Wt 91.2 kg
[2020-03-26 11:50] LABS: BASOPHILS % (AUTO) 1 % (0-10); EOSINOPHILS # (AUTO) 0.3 10^3/uL (0.0-0.3); EOSINOPHILS % (AUTO) 4 % (0-10); HEMATOCRIT 44 % (40-54); HEMOGLOBIN 15.5 g/dL (13.3-17.7); LYMPHOCYTES # (AUTO) 1.6 10^3/uL (1.0-4.0); LYMPHOCYTES % (AUTO) 23 % (12-44); MEAN CORPUSCULAR HEMOGLOBIN 32 pg (25-34); MEAN CORPUSCULAR HGB CONC 36 g/dL (32-36); MEAN CORPUSCULAR VOLUME 91 fL (80-99); MEAN PLATELET VOLUME 10.2 fL (9.0-12.2); MONOCYTES # (AUTO) 0.6 10^3/uL (0.0-1.0); MONOCYTES % (AUTO) 8 % (0-12); NEUTROPHILS # (AUTO) 4.6 10^3/uL (1.8-7.8); NEUTROPHILS % (AUTO) 64 % (42-75); PLATELET COUNT 184 10^3/uL (130-400); WHITE BLOOD COUNT 7.1 10^3/uL (4.3-11.0)
[2020-03-26 11:54] LABS: BILIRUBIN,URINE NEGATIVE (NEGATIVE); CLARITY,URINE CLEAR; COLOR,URINE YELLOW; GLUCOSE, URINE (UA) NEGATIVE (NEGATIVE); KETONES,URINE NEGATIVE (NEGATIVE); LEUKOCYTE ESTERASE ,URINE NEGATIVE (NEGATIVE); NITRITE,URINE NEGATIVE (NEGATIVE); PROTEIN,URINE NEGATIVE (NEGATIVE)
[2020-03-26 12:07] LABS: BACTERIA,URINE NEGATIVE /HPF
[2020-03-26 12:08] LABS: ERYTHROCYTE SEDIMENTATION RATE 4 MM/HR (0-30)
[2020-03-26 12:10] LABS: PROTHROMBIN TIME PATIENT 13.4 SEC (12.2-14.7)
[2020-03-26 12:17] LABS: ALANINE AMINOTRANSFERASE 27 U/L (0-55); ALBUMIN 4.4 GM/DL (3.2-4.5); ALKALINE PHOSPHATASE 83 U/L (40-136); BILIRUBIN,TOTAL 0.6 MG/DL (0.1-1.0); BUN/CREATININE RATIO 12; CALCIUM 9.4 MG/DL (8.5-10.1); CARBON DIOXIDE 24 MMOL/L (21-32); CHLORIDE 104 MMOL/L (98-107); CREATININE SERUM 0.89 MG/DL (0.60-1.30); GFR ESTIMATED > 60; GLUCOSE 133 MG/DL (70-105); POTASSIUM 3.8 MMOL/L (3.6-5.0); SODIUM 139 MMOL/L (135-145); TOTAL PROTEIN 7.1 GM/DL (6.4-8.2)
[2020-03-26 12:30] VITALS: BP 129/87
== END 2020-03-26 13:36 | disposition home or self-care (01) ==
LOC: PREOP 11:12
PROVIDERS: ATTEND Orthopaedic Surgery
DX: Z01.812 Encounter for preprocedural laboratory examination (principal); M17.11 Unilateral primary osteoarthritis, right knee
CPT/HCPCS: 36415; 80053; 81000; 85025; 85610; 85652; 86850; 86900; 86901; 87081